=== PATIENT | male | born 2005 | race Caucasian/White ===

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

== ENCOUNTER 2023-02-09 11:48 | Emergency (ER) | payer OTHER, SELFPAY ==
[2023-02-09 11:48] VITALS: BP 127/85; PULSE 76; RESP 18; TEMP 36.6; O2SAT 100
--- NOTE | 2023-02-09 12:29 | ED.GENADULT ---
HPI - General Adult General Chief complaint: Urogenital-Male Stated complaint: possible sti Time Seen by Provider: 02/09/23 11:56 Source: patient Mode of arrival: ambulatory Limitations: no limitations History of Present Illness HPI narrative: Patient is a 88-year-old male with a significant past history who presents today for STI symptoms. Patient is having pain at discharge, he says it is because he looking. He says he started noticing this last night. He has had intercourse with multiple partners. He denies any other symptoms. He does have a little bit Dysuria. Denies any systemic symptoms. He has never been tested for STDs the past. Denies any sores. Onset (ago): day(s) Location: genitals Radiation: non-radiation Severity: mild Quality: burning Relieving factors: none Exacerbating factors: none Associated symptoms: denies other symptoms Related Data Allergies Allergy/AdvReac Type Severity Reaction Status Date / Time No Known Allergies Allergy Verified 02/09/23 11:58 Review of Systems Review of Systems: All systems reviewed & are unremarkable except as noted in HPI and below Constitutional: Constitutional: Reports no additional constitutional complaints Eyes: Eyes: Reports no additional eye complaints ENT: Reports system reviewed and no additional complaints, except as documented Cardiovascular: Cardiovascular: Reports no additional cardiovascular complaints Respiratory: Respiratory: Reports no additional respiratory complaints Gastrointestinal: Gastrointestinal: Reports no additional gastrointestinal complaints Genitourinary: Genitourinary: Reports no additional male genitourinary complaints Musculoskeletal: Musculoskeletal: Reports no additional musculoskeletal complaints Integumentary/Breasts: Skin/Breast: Reports system reviewed and no additional complaints, except as docu Neurologic: Reports system reviewed and no additional complaints, except as documented Psychiatric: Psychiatric: Reports no additional psychiatric complaints Endocrine: Endocrine: Reports no additional endocrine complaints Hematologic/Lymphatic: Hematologic/Lymphatic: Reports no additional hematologic/lymphatic complaints Allergic/Immunologic: Allergic/Immunologic: Reports no additional allergic/immunologic complaints PMFSH Past Medical History Medical History Patient denies medical problems Exam Const: General: healthy appearing Nutritional Appearance: well nourished Orientation/consciousness: patient oriented x3 Limitations: no limitations HENMT: Head: normal to inspection Ears: external ears normal Face/Nose/Sinus: Normal external nose present Face and sinus: normal facial exam Mouth: Yes Normal oral and palatal mucosa present Teeth and gingiva: dentition normal Throat: posterior oropharynx normal Eyes: Conjunctivae: conjunctivae normal Pupils: Equal, round and reactive pupils present EOM: EOMs intact bilaterally Neck: Neck: normal visual inspection Chest: Chest palpation & inspection: normal inspection of the chest Resp: Effort & Inspection: normal respiratory effort Auscultation: clear to auscultation bilaterally Cardio: Rate: regular rate Rhythm: regular rhythm Heart sounds: Murmur heart sound present GI: GI Palp: Yes Soft to palpation : General: Yes bladder normal to palpation Other: penile discharge Back/Spine/Pelvis: Back: no CVA tenderness Skin: General skin exam: normal color Rashes: no rashes Wounds: no wounds Neuro: General: patient oriented x3 Cranial nerves: Yes Nystagmus not present Speech: normal speech Gait exam (Neuro): Normal gait present Extrem: General: normal to inspection Psych: Mental Status: mental status grossly normal Affect: normal affect Course Reevaluation(s) Reevaluation #1: Labs are all send out so will treat symptomatically. Vital Signs Vital signs: Vital Signs Temperatu
[2023-02-09 13:04] LABS: HIV 1 P24 AG Negative (Negative); HIV 1/2 AB Negative (Negative)
[2023-02-09] MEDS: cefTRIAXone 1 GM, LIDOCAINE HCL 1% LOCAL INJ 2.1 ML IM (13:04)
[2023-02-09] MEDS: DOXYCYCLINE HYCLATE 100 MG TABLET PO (13:04)
[2023-02-09 13:21] VITALS: BP 125/80; PULSE 75; RESP 18; TEMP 36.6; O2SAT 100
[2023-02-09 20:17] LABS: Chlamydia trachomatis DETECTED (NOT DETECTE); Neisseria gonorrhoeae PCR DETECTED (NOT DETECTE)
== END 2023-02-09 13:21 | disposition home or self-care (01) ==
PROVIDERS: Emergency Provider Family Medicine; PCP Family Medicine
DX: A64 Unspecified sexually transmitted disease (principal); R36.9 Urethral discharge, unspecified
CPT/HCPCS: 36415; 87491; 87591; 87806; 96372; 99283; A9270; J0696

== ENCOUNTER 2023-05-03 13:08 | Emergency (ER) | payer OTHER, SELFPAY ==
--- NOTE | 2023-05-03 13:10 | ED.MALEGU ---
HPI - Male Genitourinary General Chief complaint: Urogenital-Male Stated complaint: burning while urination; discharge Time Seen by Provider: 05/03/23 13:09 Source: patient and family Mode of arrival: ambulatory Limitations: no limitations History of Present Illness HPI Narrative: patient presents with some STD symptoms was treated for chlamydia and is having similar symptoms there is no fever chills there is currently some minor discharge from the penis with no flank pain no dysuria no nausea vomiting no chest pain. Severity: mild Related Data Home Medications Medication Instructions Recorded Confirmed No Home Medications 05/03/23 05/03/23 Allergies Allergy/AdvReac Type Severity Reaction Status Date / Time No Known Allergies Allergy Verified 05/03/23 13:16 Review of Systems Review of Systems: All systems reviewed & are unremarkable except as noted in HPI and below PMFSH Past Medical History Medical History Patient denies medical problems Exam Const: General: healthy appearing Nutritional Appearance: well nourished Limitations: no limitations Neck: Neck: normal visual inspection Chest: Chest palpation & inspection: normal inspection of the chest Resp: Effort & Inspection: normal respiratory effort Auscultation: clear to auscultation bilaterally GI: GI Palp: Yes Soft to palpation : General: Yes bladder normal to palpation Skin: General skin exam: normal color Rashes: no rashes Extrem: General: normal to inspection Course Course Emergency Course: Will be sending antibiotics the patient's local pharmacy. Critical Care Time Critical Care Time Critical Care Time: No Discharge Plan Discharge Clinical Impression: Chlamydia contact Patient Disposition: Home, Self-Care Condition: Stable Instructions: Antibiotic Form, Chlamydia (ED), Sexually Transmitted Diseases (ED) Additional Instructions: take medicine as prescribed and follow-up with primary for further evaluation and treatment. Prescriptions: New doxycycline hyclate 100 mg tablet 100 mg PO BID 10 Days Qty: 20 0RF No Action No Home Medications Follow-up/Referrals: UNKNOWN,DOCTOR [Primary Care Provider] - Time of Disposition: 13:16
[2023-05-03 13:12] VITALS: BP 136/73; PULSE 73; RESP 20; TEMP 36.2; O2SAT 100
[2023-05-03] MEDS: cefTRIAXone 1 GM, LIDOCAINE HCL 1% LOCAL INJ 2.1 ML IM (13:20)
== END 2023-05-03 13:34 | disposition home or self-care (01) ==
PROVIDERS: Emergency Provider Emergency Medicine
DX: R36.9 Urethral discharge, unspecified (principal); R30.0 Dysuria; Z20.2 Contact with and (suspected) exposure to infections with a predominantly sexual mode of transmission
CPT/HCPCS: 96372; 99283; J0696

== ENCOUNTER 2024-08-02 11:17 | Emergency (ER) | payer OTHER, SELFPAY ==
[2024-08-02 11:21] VITALS: BP 130/77; PULSE 73; RESP 20; TEMP 37; O2SAT 100
--- NOTE | 2024-08-02 11:42 | ED_ITS ---
HPI - Male Genitourinary General Chief complaint: Urogenital-Male Stated complaint: STD SYMPTOMS Time Seen by Provider: 08/02/24 11:41 Source: patient Mode of arrival: ambulatory Limitations: no limitations History of Present Illness HPI Narrative: 18-year-old male was diagnosed with chlamydia urethritis 3 weeks ago. he took Rocephin and doxycycline for 10 days. Patient continues to have purulent discharge per urethra off and on for a week. Patient has tested negative for HIV and syphilis. No fever or chills. No joint pains. No rash patient has not had any further sexual encounter after his previous chlamydia infection. Complaint: penile discharge Onset (ago): week(s) ( One week) Duration: intermittent Relieving factors: none Exacerbating factors: none Related Data Sexually active: Yes Home Medications ?Medication ?Instructions ?Recorded ?Confirmed ?Last Taken ?Type No Home Medications 05/03/23 08/02/24 Unknown History Allergies Allergy/AdvReac Type Severity Reaction Status Date / Time No Known Allergies Allergy Verified 08/02/24 11:26 Review of Systems Review of Systems: All systems reviewed & are unremarkable except as noted in HPI and below PMFSH Past Medical History Medical History Chlamydial urethritis Patient denies medical problems Exam Narrative: vitals are stable. Afebrile Const: General: cooperative, healthy appearing, comfortable and no acute distress HENMT: Head: normal to inspection, normocephalic and atraumatic Ears: hearing grossly normal bilaterally and external ears normal Face/Nose/Sinus: Normal external nose present and Normal nares present Face and sinus: normal facial exam Mouth: Yes Normal oral and palatal mucosa present Throat: posterior oropharynx normal Eyes: General: appearance normal, both eyes and all related structures Neck: Neck: normal visual inspection, full ROM, no lymphadenopathy and no meningeal signs Chest: Chest palpation & inspection: normal inspection of the chest Resp: Effort & Inspection: normal respiratory effort Auscultation: clear to auscultation bilaterally Cardio: Palpation: normal PMI Rate: regular rate Rhythm: regular rhythm Heart sounds: S1 normal heart sound present and S2 normal heart sound present GI: Inspection: normal to inspection Auscultation: normal bowel sounds Other: no tenderness/rigidity / rebound. No inguinal lymphadenopathy. : General: Yes no CVA tenderness Scrotum: scrotum normal Testes: Testes normal Back/Spine/Pelvis: Back: no CVA tenderness Skin: General skin exam: normal color and no rashes or lesions noted Neuro: General: oriented to person, oriented to place and oriented to time Extrem: General: normal to inspection, full ROM and capillary refill normal Psych: Appearance: grossly normal and well kempt Course Course Emergency Course: penile discharge-- patient just completed treatment for chlamydia 3 weeks ago. UA is negative for white cells and hands unlikely to have urethritis. In any case we send the urine for GC and chlamydia. Vital Signs Vital signs: Vital Signs Temperature 37.0 C 08/02/24 11:21 Pulse Rate 73 08/02/24 11:21 Respiratory Rate 20 08/02/24 11:21 Blood Pressure 130/77 08/02/24 11:21 Pulse Oximetry 100 08/02/24 11:21 Oxygen Delivery Room Air 08/02/24 11:21 Temperature 36.9 C 08/02/24 12:27 Pulse Rate 70 08/02/24 12:27 Respiratory Rate 20 08/02/24 12:27 Blood Pressure 126/72 08/02/24 12:27 Pulse Oximetry 100 08/02/24 12:27 Oxygen Delivery Room Air 08/02/24 12:27 MDM - Male Genitourinary MDM Narrative Medical decision making narrative: Penile discharge Differential Diagnosis Differential diagnosis: Likely urinary tract infection Lab Data Attestation: I reviewed the patient's lab results. Labs: Lab Results 08/02/24 08/02/24 Range/Units 11:46 11:49 Urine Color Light yellow (Yellow) Urine Appearance Clear (Clear) Urine pH 6.5 (5.0-8.0) Ur Specific [place] 1.025 H (1.010-1.020) Urine Protein Negative (Negative) Urine Glucose (UA) Negative (Negative) Urine Ketones Negative (Negative) Ur Blood (Man) Negative (Negative) Urine Nitrate Negative (Negative) Urine Bilirubin Negative (Negative) Urine Urobilinogen 1.0 (0.2-1.0) mg/dL Leukocyte Esterase Rfl Negative (Negative) ISRREAL/UL C. trachomatis (PCR) Pending N. gonorrhoeae (PCR) Pending Discharge Plan Discharge Clinical Impression: Penile discharge Patient Disposition: Home Condition: Stable Instructions: Antibiotic Form, Nonspecific Urethritis in Men (ED) Additional Instructions: follow-up with primary care physician for results of the urine sent for GC and chlamydia Patient Language: Ukrainian Prescriptions: No Action No Home Medications Follow-up/Referrals: Jose Goldberg MD [Primary Care Provider] - Time of Disposition: 12:18
[2024-08-02 11:58] LABS: Add Urine Microscopic? NO; Appearance Urine Clear (Clear); Bilirubin Urine Negative (Negative); Blood Urine Negative (Negative); Color Urine Light Yellow (Yellow); Glucose Urine UA Negative (Negative); Ketones Urine Negative (Negative); Leukocyte Esterase Ur Negative LEU/UL (Negative); Nitrate Urine Negative (Negative); Protein Urine Negative (Negative); Specific Grav Ur 1.025 (1.010-1.020); pH Urine 6.5 (5.0-8.0)
[2024-08-02 12:27] VITALS: BP 126/72; PULSE 70; RESP 20; TEMP 36.9; O2SAT 100
[2024-08-04 20:08] LABS: Chlamydia trachomatis DETECTED (NOT DETECTE); Neisseria gonorrhoeae PCR NOT DETECTED (NOT DETECTE)
== END 2024-08-02 12:33 | disposition home or self-care (01) ==
LOC: CHSED 12:33
PROVIDERS: Emergency Provider Internal Medicine Critical Care Medicine; PCP Internal Medicine
DX: R36.9 Urethral discharge, unspecified (principal); Z11.3 Encounter for screening for infections with a predominantly sexual mode of transmission
CPT/HCPCS: 81003; 87491; 87591; 99283